=== PATIENT | female | born 1990 | race Caucasian/White ===

== ENCOUNTER 2018-10-09 18:58 | Emergency (ER) | payer MEDICAID ==
[~2018-10-09] VITALS: Ht 162.6 cm; Wt 80.0 kg
[2018-10-09 19:02] VITALS: BP 115/70
[2018-10-09] MEDS ORDERED: albuterol 2.5 mg/0.5ml nebule NEB ONE (20:00)
[2018-10-09] MEDS ORDERED: albuterol 2.5 MG/3 ML nebule NEB ONE (20:05)
[2018-10-09 21:04] LABS: CLARITY,URINE CLEAR (Clear); COLOR,URINE YELLOW (Yellow); GLUCOSE, URINE NEGATIVE (Neg); KETONES,URINE NEGATIVE (Neg); LEUKOCYTE ESTERASE ,URINE NEGATIVE (Neg); NITRITES, URINE NEGATIVE (Neg); OCCULT BLOOD,URINE NEGATIVE (Neg); PH,URINE 7.5 (4.8-8.0); PROTEIN,URINE TRACE mg/dl (Neg)
[2018-10-09] MEDS ORDERED: ALBU18HF2 IH (21:09)
[2018-10-09] MEDS ORDERED: AMOX500C2 PO (21:09)
[2018-10-09 21:12] LABS: UA COLLECTION TYPE CLN CATCH MIDSTREAM
[2018-10-09 21:14] LABS: BACTERIA,URINE 2+ /HPF (Neg); RBC,URINE NONE SEEN /HPF (0-2); SQUAMOUS EPITHELIAL CELL,UR MANY /LPF (FEW); WBC,URINE 0-4 /HPF (0-4)
[2018-10-09 21:19] LABS: URINE AMPHETAMINE SCREEN NEGATIVE (Neg); URINE BARBITUATE SCREEN NEGATIVE (Neg); URINE BENZODIAZEPINES SCREEN NEGATIVE (Neg); URINE CANNABINOID SCREEN POSITIVE (Neg); URINE COCAINE SCREEN NEGATIVE (Neg); URINE METHADONE SCREEN NEGATIVE (Neg); URINE OPIATE SCREEN NEGATIVE (Neg); URINE PHENCYCLIDINE SCREEN NEGATIVE (Neg)
== END 2018-10-09 21:27 | disposition home or self-care (01) ==
LOC: ER 18:58
DX: O99.512 Diseases of the respiratory system complicating pregnancy, second trimester (principal); J20.9 Acute bronchitis, unspecified; F17.200 Nicotine dependence, unspecified, uncomplicated; Z79.2 Long term (current) use of antibiotics; Z79.899 Other long term (current) drug therapy; Z3A.20 20 weeks gestation of pregnancy
CPT/HCPCS: 71045; 80305; 81001; 94640; 94760; 99284; J7611

== ENCOUNTER 2021-07-07 09:42 | Emergency (ER) | payer MEDICAID ==
[~2021-07-07] VITALS: Ht 162.6 cm; Wt 81.8 kg
[~2021-07-07 09:42] MED LIST: ALBU18HF2 IH
[2021-07-07 10:14] VITALS: BP 126/70
== END 2021-07-07 12:00 | disposition home or self-care (01) ==
LOC: ER 09:42
DX: J02.9 Acute pharyngitis, unspecified (principal); B34.9 Viral infection, unspecified; Z79.899 Other long term (current) drug therapy
CPT/HCPCS: 87081; 87880; 99283

== ENCOUNTER 2021-10-22 12:09 | Emergency (ER) | payer MEDICAID ==
[~2021-10-22] VITALS: Ht 162.6 cm; Wt 81.8 kg
[2021-10-22] MEDS ORDERED: AZIT-83 PO (14:15)
[2021-10-22] MEDS ORDERED: PRED20TA PO (14:15)
== END 2021-10-22 15:23 | disposition left against medical advice (07) ==
LOC: ER 12:09
DX: J20.9 Acute bronchitis, unspecified (principal); Z20.822 Contact with and (suspected) exposure to COVID-19; R05.9 Cough, unspecified; J45.909 Unspecified asthma, uncomplicated; F17.200 Nicotine dependence, unspecified, uncomplicated; Z79.2 Long term (current) use of antibiotics; Z79.899 Other long term (current) drug therapy
CPT/HCPCS: 87635; 99283; C9803

== ENCOUNTER 2023-03-02 15:57 | Emergency (ER) | payer MEDICAID ==
[~2023-03-02] VITALS: Ht 160 cm; Wt 81.8 kg
[2023-03-02 15:59] VITALS: BP 133/84
--- NOTE | 2023-03-02 16:29 | NUR ---
PT PRESENTS TO THE ER WITH LUMP BEHIND LEFT EAR. PT REPORTS 5/10 PAIN WHEN TOUCHED.
== END 2023-03-02 17:02 | disposition home or self-care (01) ==
LOC: ER 15:57
DX: R59.1 Generalized enlarged lymph nodes (principal); J45.909 Unspecified asthma, uncomplicated; Z88.2 Allergy status to sulfonamides; Z79.899 Other long term (current) drug therapy
CPT/HCPCS: 99282